=== PATIENT | female | born 1935 | race Caucasian/White ===

== ENCOUNTER → 2017-01-11 | Outpatient (CLI) | payer OTHER ==
[~2017-01-11] MED LIST: ACYCLOVIR 400400 MG PO; ASPIRIN EC81 M1 PO; ATORVASTATIN CA40 MG PO; BACLOFEN 10MG T10 M1 PO; BACLOFEN 10MG T10 MG PO; CALCIUM 1,0001 EACH PO; CHROMIUM400 MCG PO; CINNAMON PLUS1 EACH PO; CYMBALTA60 MG PO; ESTRACE0.5 MG PO; FIBER500 MG PO; FUROSEMIDE 80 M80 M1 PO; KLOR-CON 1010 MEQ PO; MOBIC7.5 M1 PO; MULTIVITAMINS PO; NEURONTIN 300M300 M2 PO; OMEPRAZOLE40 MG PO; PAMELOR25 MG PO; PREDNISONE50 MG PO; PREMARIN0.3 MG PO; PROBIOTIC1 EAC1 PO; REQUIP 0.25 M0.25 MG PO; TRAMADOL 50 MG50 MG PO; VITAMIN B-12500 MCG PO; VITAMIN D31000 UNI2 PO; VITAMINC500 PO; ZESTRIL20 MG PO
== END ==
LOC: RAD 04:10
DX: Z12.31 Encounter for screening mammogram for malignant neoplasm of breast (principal)

== ENCOUNTER → 2017-02-12 | Outpatient (CLI) | payer OTHER | LOC: RAD 13:47 | DX: M16.0 Bilateral primary osteoarthritis of hip (principal) ==

== ENCOUNTER → 2017-10-30 | Outpatient (CLI) | payer OTHER ==
[~2017-10-30] VITALS: Ht 160 cm; Wt 77.1 kg
--- NOTE | ~2017-10-30 | PATH ---
[facility] [place] [address] PATHOLOGY RPT PROCEDURE Name: LILIAM KUMAR ELSY Room #: REG [facility] MDarrell.#: [id number] Admission: 10/30/17 Date of : 35 Discharge: Report #: [id number] Path Case #: [id number] [facility] Accession Number: [id number] . 01 Material submitted: . PART A: POLYP AT ASCENDING COLON PART B: POLYP AT SIGMOID COLON X2 PART C: POLYP AT RECTUM . 01 Clinical history: . Pre-Op DX: Rectal bleeding Post-Op DX: Colon polyps . 02 Diagnosis: A. Polyp, ascending colon, endoscopic biopsy: - Tubular adenoma identified in all fragments sampled. - Negative for high grade dysplasia. . B. Polyp, at sigmoid colon, endoscopic biopsy: - Tubular adenoma identified in all fragments sampled. - Melanosis coli. - Negative for high grade dysplasia. . C. Polyp, at rectum, endoscopic biopsy: - Tubular adenoma. - Negative for high grade dysplasia. (IUV/db; 10/31/17) LBQ/10/31/2017 . 02 Electronically signed: . Liv Narayan MD, Pathologist NPI- [id number] . 01 Gross description: . A. Received in formalin labeled "Liliam Kumar, polyp at ascending colon," are multiple segments of armstrong soft tissue measuring 2.1 x 0.6 x 0.2 cm in aggregate dimensions. The specimen is submitted entirely in cassette A1. . B. Received in formalin labeled "Liliam Kumar, polyp at sigmoid colon," are 2 segments of armstrong soft tissue measuring 1.5 x 0.4 x 0.4 cm in aggregate dimensions and ranging from 0.5 to 0.8 cm in maximum dimension. The specimen is submitted entirely in cassette B1. . C. Received in formalin labeled "Liliam Kumar, polyp rectum," is a 0.8 x 0.5 x 0.5 cm polypoid piece of armstrong soft tissue. The margin is inked and the specimen is sectioned perpendicular to [place] [address] PATHOLOGY RPT PROCEDURE Name: LILIAM KUMAR ELSY Room #: REG [facility]#: [id number] Admission: 10/30/17 Date of : 35 Discharge: Report #: [id number] Path Case #: [id number] submitted in cassette C1. (TSD; 10/30/2017) TOB/TOB . 02 Pathologist provided ICD-10: D12.2, D12.5, D12.8 . 02 CPT . 697638, [id number], 837895 Performed at: [address], [place] [id number] MD Kenney Khan MD Phone: [phone] Performed at: [address] [id number] MD Liv Narayan MD Phone: [phone]
--- NOTE | ~2017-10-30 | P ---
[facility] [place] [address] [place] [address] PROCEDURE REPORT Name: ALVA KUMAR ELSY Room #: REG [facility] Miranda.#: [id number] Admission: 10/30/17 Attend Phys: Matthew Ho Discharge: Date of : 35 Report #: [id number] THIS REPORT FOR: //name// CC: Matthew Marks DATE OF SERVICE: 10/30/2017 PROCEDURE PERFORMED: Colonoscopy with polypectomies. HISTORY OF PRESENT ILLNESS: The patient is an 82-year-old female who reports bright red blood per rectum most days with the bowel movement. Last colonoscopy was greater than 10 years ago reportedly. No family history of colon cancer. She denies any pain. She has a history of chronic constipation. DESCRIPTION OF PROCEDURE: The risks and benefits of the procedure were explained to the patient, those risks including but not limited to bleeding, perforation, the risk of sedation. She understood these risks and gave informed consent. Sedation was given using propofol per anesthesia. Next, a digital rectal exam was initially performed, which was normal. Next, using a standard Olympus colonoscope, the scope was placed in the patient's anus and advanced under direct vision to the cecum. The overall prep was good in most areas. There was some semi-liquid stool in some areas that did limit visualization. Multiple washings and aspirations were performed. The cecum and ileocecal valve were normal in appearance. There was a significant melanosis coli noted throughout the entire colon. In the ascending colon, 2 sessile polyps were noted ranging from 5-7 mm in size, both removed by snare cautery. The transverse and descending colon were normal. In the sigmoid colon, a 5 mm and 4 mm sessile polyps also noted, both removed by snare cautery. In the rectum, there was a 1.2 cm sessile polyp also removed by snare cautery. On retroflexion, small to medium size internal hemorrhoids were noted, one with some erythema. No active bleeding. No clots. There was no evidence of anal fissure. The scope was then withdrawn and the procedure terminated. The patient tolerated the procedure well. IMPRESSION: 1. Small colonic polyps as described above. 2. Melanosis coli. 3. Internal hemorrhoids, likely source of bright red blood per rectum. RECOMMENDATIONS: 1. Await biopsy results. 2. Recommend Analpram on a p.r.n. basis. 3. If her bleeding continues, consider colorectal surgery consultation. [address] [address] PROCEDURE REPORT Name: ALVA KUMAR ELSY Room #: REG [facility].#: [id number] Admission: 10/30/17 Attend Phys: Matthew Ho Discharge: Date of : 35 Report #: [id number] Thank you for allowing me to participate in her care. <ELECTRONICALLY SIGNED> By: Matthew Campos MD 11/01/17 0804 [id number] Matthew Campos MD /parrish
== END | disposition home or self-care (01) ==
LOC: GI 08:49
DX: D12.2 Benign neoplasm of ascending colon (principal); D12.5 Benign neoplasm of sigmoid colon; D12.8 Benign neoplasm of rectum; K63.89 Other specified diseases of intestine; K64.8 Other hemorrhoids; I10 Essential (primary) hypertension; E78.5 Hyperlipidemia, unspecified; G43.909 Migraine, unspecified, not intractable, without status migrainosus; K21.9 Gastro-esophageal reflux disease without esophagitis; Z98.41 Cataract extraction status, right eye; Z98.42 Cataract extraction status, left eye; Z96.653 Presence of artificial knee joint, bilateral; Z98.890 Other specified postprocedural states; Z90.710 Acquired absence of both cervix and uterus; Z88.2 Allergy status to sulfonamides; Z88.8 Allergy status to other drugs, medicaments and biological substances; Z79.82 Long term (current) use of aspirin; Z79.899 Other long term (current) drug therapy
CPT/HCPCS: 62110; 62900

== ENCOUNTER → 2018-02-21 | Outpatient (CLI) | payer OTHER | LOC: ULTRA 08:03 | DX: S73.102A Unspecified sprain of left hip, initial encounter (principal); S79.812A Other specified injuries of left hip, initial encounter; I10 Essential (primary) hypertension; M47.816 Spondylosis without myelopathy or radiculopathy, lumbar region; M16.12 Unilateral primary osteoarthritis, left hip; M48.07 Spinal stenosis, lumbosacral region; M25.752 Osteophyte, left hip; M25.451 Effusion, right hip; M25.452 Effusion, left hip; M96.1 Postlaminectomy syndrome, not elsewhere classified; G62.9 Polyneuropathy, unspecified; X58.XXXA Exposure to other specified factors, initial encounter; Y93.89 Activity, other specified; Y92.89 Other specified places as the place of occurrence of the external cause; Y99.8 Other external cause status ==

== ENCOUNTER → 2018-04-30 | Outpatient (CLI) | payer OTHER | LOC: NUC 07:17 | DX: R94.31 Abnormal electrocardiogram [ECG] [EKG] (principal); R06.00 Dyspnea, unspecified ==

== ENCOUNTER → 2018-05-01 | Outpatient (CLI) | payer OTHER ==
--- NOTE | 2018-05-01 15:10 | 2DMMODE ---
[facility] [address] [place] [address] 2 D/M-MODE ECHOCARDIOGRAM Name: JOSÉALVA A Room #: REG [facility]#: [id number] Admission: 05/01/18 Attend Phys: James Li MD Discharge: Date of : 35 Date of Service: 05/01/18 1509 Report #: [id number] THIS REPORT FOR: //name// APPROVED REPORT Study performed: 05/01/2018 14:19:43 EXAM: Comprehensive 2D, Doppler, and color-flow Echocardiogram Patient Location: Out-Patient Room #: Echo lab 2 Status: routine BSA: 1.87 HR: 73 bpm BP: 118/72 mmHg Rhythm: NSR Other Information Study Quality: Adequate Indications Pre-Op Dyspnea Hypertension/HDD 2D Dimensions RVDd: 34.24 mm IVSd: 10.91 (7-11mm) LVOT Diam: 20.64 (18-24mm) LVDd: 40.64 mm PWd: 10.73 (7-11mm) Ascending Ao: 32.57 (22-36mm) LVDs: 28.83 (25-40mm) Aortic Root: 33.07 mm IVC: 13.00 mm Volumes Left Atrial Volume (Systole) Single Plane 4CH: 31.60 mL Single Plane 2CH: 39.86 mL LA ESV Index: 21.00 mL/m2 Aortic Valve AoV Peak Wm.: 1.35 m/s AO Peak Gr.: 7.30 mmHg LVOT Max P.76 mmHg LVOT Max V: 0.97 m/s SHAUN Vmax: 2.40 cm2 Mitral Valve E/A Ratio: 0.6 [facility] [address] [place] [address] 2 D/M-MODE ECHOCARDIOGRAM Name: ALVA KUMAR Shlomo Room #: [facility]#: [id number] Admission: 05/01/18 Attend Phys: James Li MD Discharge: Date of : 35 Date of Service: 05/01/18 1509 Report #: [id number] MV Decel. Time: 295.58 ms MV E Max Wm.: 0.97 m/s MV A Wm.: 1.55 m/s MV PHT: 85.72 ms IVRT: 133.79 ms Pulmonary Valve PV Peak Wm.: 0.90 m/s PV Peak Gr.: 3.23 mmHg Pulmonary Vein P Vein S: 0.66 m/s P Vein A: 0.36 m/s P Vein D: 0.36 m/s P Vein A Dur.: 110.7 msec P Vein S/D Ratio: 1.83 Left Ventricle The left ventricle is normal size. There is normal left ventricular wall thickness. The left ventricular systolic function is normal. The left ventricular ejection fraction is within the normal range. LVEF is 55-60%. Grade I - abnormal relaxation pattern. Right Ventricle The right ventricle is normal size. The right ventricular systolic function is normal. Atria The left atrium size is normal. The right atrium size is normal. Aortic Valve The aortic valve is normal in structure. The Aortic valve is sclerotic. No aortic regurgitation is present. There is no aortic valvular stenosis. Mitral Valve The mitral valve is normal in structure. There is mitral annular calcification. Trace to mild mitral regurgitation. No evidence of mitral valve stenosis. Tricuspid Valve The tricuspid valve is normal in structure. There is no tricuspid valve regurgitation noted. Pulmonic Valve The pulmonary valve is normal in structure. There is no pulmonic valvular regurgitation. [facility] [address] [place] [address] 2 D/M-MODE ECHOCARDIOGRAM Name: ALVA KUMAR Shlomo Room #: REG [facility]#: [id number] Admission: 05/01/18 Attend Phys: James Li MD Discharge: Date of : 35 Date of Service: 05/01/18 1509 Report #: [id number] Great Vessels The aortic root is normal in size. IVC is normal in size and collapses >50% with inspiration. Pericardium There is no pericardial effusion. <Conclusion> The left ventricle is normal size. There is normal left ventricular wall thickness. The left ventricular systolic function is normal. Grade I - abnormal relaxation pattern. The right ventricle is normal size. The left atrium size is normal. The Aortic valve is sclerotic. The mitral valve is normal in structure. There is mitral annular calcification. Trace to mild mitral regurgitation. There is no tricuspid valve regurgitation noted. <ELECTRONICALLY SIGNED> By: James Li MD 05/01/18 1509 1509 1509 James Li MD /INF
== END ==
LOC: CV 14:01
DX: Z01.818 Encounter for other preprocedural examination (principal); I34.8 Other nonrheumatic mitral valve disorders; I10 Essential (primary) hypertension

== ENCOUNTER 2018-05-28 19:11 | Emergency (ER) | payer OTHER ==
[~2018-05-28] VITALS: Ht 162.6 cm; Wt 81.7 kg
[2018-05-28 20:08] LABS: URINE BILIRUBIN NEGATIVE (Negative); URINE BLOOD NEGATIVE (Negative); URINE CLARITY CLEAR; URINE COLOR YELLOW; URINE GLUCOSE-RANDOM* NEGATIVE (Negative); URINE KETONES NEGATIVE (Negative); URINE LEUKOCYTES-REFLEX NEGATIVE (Negative); URINE NITRITE-REFLEX NEGATIVE (Negative); URINE PROTEIN (DIPSTICK) NEGATIVE (Negative); URINE UROBILINOGEN 0.2 E.U./dl (0.2-1.0)
[2018-05-28 20:32] LABS: ABSOLUTE NEUTROPHILS 6.7 thou/uL (1.4-8.2); BASOPHILS 0.9 % (0.0-2.0); EOSINOPHILS 7.8 % (0.0-3.0); HEMATOCRIT 27.8 % (37.0-47.0); HEMOGLOBIN 9.7 gm/dL (12.0-15.0); LYMPHOCYTES 13.7 % (24.0-44.0); MCH 33.6 pg (26.0-34.0); MCHC 34.9 g/dL (28.0-37.0); MCV 96.3 fL (80.0-100.0); MONOCYTES 11.5 % (1.0-8.0); PLATELET COUNT 273 thou/uL (150-400); POLYS 66.1 % (36.0-66.0); RBC 2.88 mil/uL (4.20-5.00); RDW 13.9 % (10.5-14.5); WBC 10.1 thou/uL (4.0-11.0)
[2018-05-28 20:39] LABS: CALCIUM 8.2 mg/dL (8.5-10.1); CREATININE 1.6 mg/dL (0.6-1.0); POTASSIUM 4.3 mmol/L (3.5-5.1)
[2018-05-28 20:44] LABS: ALBUMIN 3.1 g/dL (3.4-5.0); TOTAL BILIRUBIN 0.3 mg/dL (<0.1-1.0); TOTAL PROTEIN 6.3 g/dL (6.4-8.2)
[2018-05-28 22:16] VITALS: BP 96/49
== END 2018-05-28 22:17 | disposition home or self-care (01) ==
LOC: ER 19:11
PROVIDERS: Physician Assistant
DX: R33.9 Retention of urine, unspecified (principal); D64.9 Anemia, unspecified; K21.9 Gastro-esophageal reflux disease without esophagitis; I10 Essential (primary) hypertension; E78.5 Hyperlipidemia, unspecified; G43.909 Migraine, unspecified, not intractable, without status migrainosus; Z96.649 Presence of unspecified artificial hip joint; Z90.710 Acquired absence of both cervix and uterus; Z96.653 Presence of artificial knee joint, bilateral; Z88.2 Allergy status to sulfonamides; Z88.5 Allergy status to narcotic agent

== ENCOUNTER → 2018-06-20 | Outpatient (CLI) | payer OTHER | LOC: ULTRA 10:26 | DX: M79.89 Other specified soft tissue disorders (principal) ==

== ENCOUNTER → 2018-06-20 | Outpatient (CLI) | payer OTHER | LOC: HYPER 08:03 | DX: I83.024 Varicose veins of left lower extremity with ulcer of heel and midfoot (principal); L89.622 Pressure ulcer of left heel, stage 2; L97.421 Non-pressure chronic ulcer of left heel and midfoot limited to breakdown of skin; I89.0 Lymphedema, not elsewhere classified; I12.9 Hypertensive chronic kidney disease with stage 1 through stage 4 chronic kidney disease, or unspecified chronic kidney disease; N18.3 Chronic kidney disease, stage 3 (moderate); E78.5 Hyperlipidemia, unspecified; G62.9 Polyneuropathy, unspecified; G25.81 Restless legs syndrome; G43.909 Migraine, unspecified, not intractable, without status migrainosus; K21.9 Gastro-esophageal reflux disease without esophagitis; M15.8 Other polyosteoarthritis; M47.812 Spondylosis without myelopathy or radiculopathy, cervical region; F32.9 Major depressive disorder, single episode, unspecified; Z86.14 Personal history of Methicillin resistant Staphylococcus aureus infection; Z96.649 Presence of unspecified artificial hip joint; Z96.653 Presence of artificial knee joint, bilateral; Z90.710 Acquired absence of both cervix and uterus; Z79.82 Long term (current) use of aspirin ==

== ENCOUNTER → 2018-07-04 | Outpatient (CLI) | payer OTHER | LOC: HYPER 06:46 | DX: I83.024 Varicose veins of left lower extremity with ulcer of heel and midfoot (principal); L89.622 Pressure ulcer of left heel, stage 2; L97.421 Non-pressure chronic ulcer of left heel and midfoot limited to breakdown of skin; L84 Corns and callosities; I89.0 Lymphedema, not elsewhere classified; E78.5 Hyperlipidemia, unspecified; I12.9 Hypertensive chronic kidney disease with stage 1 through stage 4 chronic kidney disease, or unspecified chronic kidney disease; N18.3 Chronic kidney disease, stage 3 (moderate); G62.9 Polyneuropathy, unspecified; G25.81 Restless legs syndrome; G43.909 Migraine, unspecified, not intractable, without status migrainosus; K21.9 Gastro-esophageal reflux disease without esophagitis; M15.8 Other polyosteoarthritis; M47.812 Spondylosis without myelopathy or radiculopathy, cervical region; F32.9 Major depressive disorder, single episode, unspecified; Z86.14 Personal history of Methicillin resistant Staphylococcus aureus infection; Z96.642 Presence of left artificial hip joint ==